=== PATIENT | male | born 1990 | race Caucasian/White ===

== ENCOUNTER 2017-07-26 18:45 | Emergency (ER) | payer OTHER ==
[~2017-07-26] VITALS: Ht 180.3 cm; Wt 79.4 kg
[~2017-07-26 18:45] MED LIST: ADERAL
== END 2017-07-26 21:36 | disposition home or self-care (01) ==
LOC: ER 18:45
DX: K52.9 Noninfective gastroenteritis and colitis, unspecified (principal)